=== PATIENT | female | born 1985 | race African-American/Black ===

== ENCOUNTER 2020-08-25 19:00 | Emergency (ER) | payer MEDICAID ==
[~2020-08-25] VITALS: Ht 165.1 cm; Wt 78.0 kg
[2020-08-25] MEDS ORDERED: SODIUM CHLORIDE 0.9% 1,000 ML IV ONE (21:00)
[2020-08-25 21:08] LABS: CLARITY URINE CLEAR (CLEAR); COLOR URINE YELLOW (YELLOW); KETONES URINE TRACE (NEGATIVE); LEUKOCYTE ESTERASE URINE 3+ (NEGATIVE); NITRITE URINE NEGATIVE (NEGATIVE); OCCULT BLOOD URINE 3+ (NEGATIVE); PROTEIN URINE NEGATIVE (NEGATIVE); SPECIFIC GRAVITY URINE 1.007 (1.005-1.030)
[2020-08-25 21:48] LABS: BASOPHILS % 0.3 % (0.0-2.0); EOSINOPHILS % 0.3 % (0.0-5.0); HEMATOCRIT. 33.4 % (36.0-48.0); HEMOGLOBIN. 11.1 g/dL (12.0-16.0); LYMPHOCYTES % 11.3 % (20.0-50.0); MEAN CORPUSCULAR VOLUME 95.7 fL (81.0-99.0); MEAN PLATELET VOLUME 9.5 fl (7.4-10.4); MONOCYTES % 3.7 % (2.0-8.0); NEUTROPHILS % 84.4 % (40.0-76.0); PLATELET 245 x1000/uL (130-400); RED BLOOD CELL COUNT 3.49 mill/uL (4.2-5.4); RED CELL DISTRIBUTION WIDTH 13.1 % (11.6-14.6)
[2020-08-25 21:56] LABS: CHLORIDE 106 mEq/L (98-107)
[2020-08-25 21:58] LABS: HCG SCREEN POSTIVE
[2020-08-25 22:20] LABS: B-HCG QUANTITATIVE 1094 mIU/mL (<3)
[2020-08-25] MEDS ORDERED: NITROFURANTOIN 100MG M/M CAPSULE PO ONE (23:45)
[2020-08-26] MEDS ORDERED: METHYLERGONOVINE MALEATE 0.2MG TABLET PO ONE (00:15)
[2020-08-26] MEDS ORDERED: MISOPROSTOL 200MCG TABLET PO ONE (00:15)
[2020-08-26] MEDS ORDERED: IBUPROFEN 600MG TABLET PO ONE (00:15)
[2020-08-26] MEDS ORDERED: METH PO (00:16)
[2020-08-26 00:32] VITALS: BP 108/62
== END 2020-08-26 01:30 | disposition home or self-care (01) ==
LOC: ER 19:00
DX: O03.4 Incomplete spontaneous abortion without complication (principal); Z88.0 Allergy status to penicillin
CPT/HCPCS: 36415; 76801; 76817; 80053; 81003; 81025; 84702; 84703; 85025; 86850; 86900; 86901; 87086; 99284; J7030

== ENCOUNTER 2021-08-09 17:21 | Emergency (ER) | payer MEDICAID ==
[~2021-08-09] VITALS: Ht 162.6 cm; Wt 63.0 kg
[~2021-08-09 17:21] MED LIST: IBUP-2030 PO; METH PO
[2021-08-09] MEDS ORDERED: ACETAMINOPHEN 325MG TABLET PO PRN (17:30)
[2021-08-09 19:47] LABS: BASOPHILS % 0.4 % (0.0-2.0); EOSINOPHILS % 1.9 % (0.0-5.0); HEMATOCRIT. 29.3 % (36.0-48.0); HEMOGLOBIN. 10.1 g/dL (12.0-16.0); LYMPHOCYTES % 30.8 % (20.0-50.0); MEAN CORPUSCULAR HEMOGLOBIN 33.5 pg (28.0-32.0); MEAN CORPUSCULAR VOLUME 96.9 fL (81.0-99.0); MEAN PLATELET VOLUME 9.6 fl (7.4-10.4); NEUTROPHILS % 61.9 % (40.0-76.0); PLATELET 240 x1000/uL (130-400); RED BLOOD CELL COUNT 3.02 mill/uL (4.2-5.4); RED CELL DISTRIBUTION WIDTH 13.8 % (11.6-14.6)
[2021-08-09 19:49] LABS: CHLORIDE 108 mEq/L (98-107)
[2021-08-09 20:23] LABS: B-HCG QUANTITATIVE 4842 mIU/mL (<3)
[2021-08-09 22:10] VITALS: BP 100/61
== END 2021-08-09 22:14 | disposition home or self-care (01) ==
LOC: ER 17:21
DX: O20.0 Threatened abortion (principal); Z3A.01 Less than 8 weeks gestation of pregnancy
CPT/HCPCS: 36415; 76801; 76817; 80053; 84702; 85025; 99284; Z7610

== ENCOUNTER 2022-12-06 12:31 | Emergency (ER) | payer MEDICAID ==
[~2022-12-06] VITALS: Ht 162.6 cm; Wt 72.5 kg
[2022-12-06 13:19] VITALS: BP 130/67
== END 2022-12-06 17:27 | disposition home or self-care (01) ==
LOC: ER 12:31
DX: O26.892 Other specified pregnancy related conditions, second trimester (principal); R06.02 Shortness of breath; Z3A.14 14 weeks gestation of pregnancy
CPT/HCPCS: 76805; 99284